=== PATIENT | male | born 1955 | race Caucasian/White ===

== ENCOUNTER 2016-08-02 19:55 | Emergency (ER) | payer OTHER ==
[~2016-08-02] VITALS: Ht 177.8 cm; Wt 68.0 kg
[2016-08-02 20:06] VITALS: BP 133/74
[2016-08-02] MEDS ORDERED: ACETAMINOPHEN ES 500 MG TABLET PO ONE (20:30)
[2016-08-02] MEDS ORDERED: ACETAMINOPHEN ES 500 MG TABLET ONE (20:44)
== END 2016-08-02 21:30 | disposition home or self-care (01) ==
LOC: ER 19:56
DX: S80.02XA Contusion of left knee, initial encounter (principal); F17.200 Nicotine dependence, unspecified, uncomplicated; W18.30XA Fall on same level, unspecified, initial encounter; Y93.89 Activity, other specified; Y92.89 Other specified places as the place of occurrence of the external cause; Y99.8 Other external cause status
CPT/HCPCS: 73564; 99284; A4606; Z7610

== ENCOUNTER 2022-08-17 16:09 | Emergency (ER) | payer MEDICARE, OTHER ==
[~2022-08-17] VITALS: Ht 175.3 cm; Wt 72.6 kg
[2022-08-17 16:16] VITALS: BP 145/73
--- NOTE | 2022-08-17 16:24 | NUR ---
AT BEDSIDE FOR EVAL
--- NOTE | 2022-08-17 16:33 | NUR ---
Patient discharged to home in stable condition. Written and verbal after care instructions given. Patient verbalizes understanding of instruction.
== END 2022-08-17 16:36 | disposition home or self-care (01) ==
LOC: ER 16:19
DX: S90.412A Abrasion, left great toe, initial encounter (principal); S90.411A Abrasion, right great toe, initial encounter; I10 Essential (primary) hypertension; F17.200 Nicotine dependence, unspecified, uncomplicated; Z60.2 Problems related to living alone; X58.XXXA Exposure to other specified factors, initial encounter; Y93.89 Activity, other specified; Y92.89 Other specified places as the place of occurrence of the external cause; Y99.8 Other external cause status
CPT/HCPCS: 99282; A6403; A4649